=== PATIENT | male | born 1960 | race Caucasian/White ===

== ENCOUNTER 2017-01-08 06:52 | Observation (INO) | payer OTHER ==
[2017-01-06 10:59] LABS: HEMATOCRIT 46.4 % (40.0-51.0)
[2017-01-06 11:12] LABS: BUN (BLOOD UREA NITROGEN) 9 MG/DL (6-23); CALCIUM, SERUM 9.3 MG/DL (8.5-10.4); CHLORIDE, SERUM 107 MMOL/L (96-112); CO2 (CARBON DIOXIDE) 28 MMOL/L (24-34); CREATININE 0.88 MG/DL (0.70-1.30); GFR AFRICAN AMERICAN 112 ML/MIN (>=60); GFR NON AFRICAN AMERICAN 97 ML/MIN (>=60); GLUCOSE, SERUM 111 MG/DL (60-99); POTASSIUM, SERUM 4.5 MMOL/L (3.5-5.3); SODIUM, SERUM 142 MMOL/L (135-148)
--- NOTE | ~2017-01-08 | OP ---
Record Of Operation [facility] [address] [place]. [address] NAME: ANIA MORSE : 62 STATUS : DIS Yolanda PAT#: [id number] AGE: 56 ADM/REG DATE : 01/08/17 MR#: [id number] REPORT SERV DATE: 01/11/17 DICTATED BY: RAQUEL CHAVEZ II DATE: 01/11/17 REPORT STATUS : Draft TRANSCRIBED BY: MODL DATE: 01/11/17 DATE OF PROCEDURE: 01/08/2017 PREOPERATIVE DIAGNOSES: 1. Right upper extremity radiculopathy. 2. 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 3. Discogenic neck pain following trauma. POSTOPERATIVE DIAGNOSES: 1. Right upper extremity radiculopathy. 2. 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 3. Discogenic neck pain following trauma. PROCEDURE: 1. C5-6, C6-7 anterior interbody arthrodesis. 2. Application of prosthetic devices C5-6, C6-7. 3. Anterior instrumentation C5-6, C6-7. 4. Use of allograft substitute and bone marrow aspirate. 5. Use of the microscope. SURGEON: Raquel Chavez M.D. FLUIDS: 1800 mL LR. ESTIMATED BLOOD LOSS: 30 mL. DRAINS: One drain. COMPLICATIONS: None. ANTIBIOTIC: Preoperatively. DETAILS OF PROCEDURE: After informed consent was obtained, the patient was brought to the operating room at his request and general anesthesia achieved. He was placed in the supine position and the neck and iliac crest prepped and draped in a sterile fashion. 5 mL of bone marrow was aspirated from the iliac crest, followed by a right-sided longitudinal incision. The interval was explored and the deep cervical fascia incised. Subperiosteal exposure was completed from C5-7. The Press Operator Apprentice retractors were placed, followed by placement of the Windom pins. The microscope was now brought into place, and under microscopic visualization, the C6-7 disk was now removed. The endplates were prepared with the high- speed remberto, the Kerrison rongeurs, and the curettes. The posterolateral osteophytes were now removed including removal of the posterior longitudinal ligament. There was also a small fragment of disk, which was now removed, to further decompress the C7 nerve root on the right. We also performed a decompression of the left C6-7 foramen. The prosthetic device was now chosen and placed. This contained allograft substitute and bone marrow aspirate. Record Of Operation [facility] [place] [address] [place]. [address] NAME: ANIA MORSE : 62 STATUS : DIS Yolanda PAT#: [id number] AGE: 56 ADM/REG DATE : 01/08/17 MR#: [id number] REPORT SERV DATE: 01/11/17 DICTATED BY: RAQUEL CHAVEZ II DATE: 01/11/17 REPORT STATUS : Draft TRANSCRIBED BY: DMITRIY DATE: 01/11/17 Next, the C5-6 level was addressed in a similar manner with endplate preparation and removal of the posterior vertebral body osteophytes and the posterior ligament. The canal and foramen were now acceptably decompressed, followed by placement of the prosthetic device. Excellent fit was obtained. Next, the Windom pins were removed, followed by placement of the anterior fixation device. Please note, this was a separate plate and screw construct and two screws were then placed in the C5, C6, and C7. Multiplanar imaging confirmed acceptable placement of the implants. A deep drain was placed secondary to very mild cancellous bone bleeding. Standard closure was performed and dressings applied. The patient was extubated and transferred to PACU in stable condition. AIDA/DMITRIY Raquel Chavez II, M.D. / [id number] CC: Orion Feliciano II, JOHN D. Peter John Lund, M.D.
[~2017-01-08 06:52] MED LIST: FISH OIL1200 MG PO; GLUCCHONDR PO; TOPXL25 PO; VITC500 PO; ZYRTEC ALLGY10 MG PO
[2017-01-10] MEDS ORDERED: MSCONT15 PO (10:21)
[2017-01-10] MEDS ORDERED: V5 PO (10:22)
[2017-01-10] MEDS ORDERED: PERCOCET 10/3251 TAB PO (10:22)
[2017-01-10] MEDS ORDERED: ZOFRAN4 PO (10:22)
== END 2017-01-10 11:55 | disposition home or self-care (01) ==
LOC: SDC 06:52 → 3SO 16:24
PROVIDERS: Orthopaedic Surgery
PROC: 0RG2070 Fusion of 2 or more Cervical Vertebral Joints with Autologous Tissue Substitute, Anterior Approach, Anterior Column, Open Approach (ICD-10-PCS; 2017-01-08)
PROC: 0RG20K0 Fusion of 2 or more Cervical Vertebral Joints with Nonautologous Tissue Substitute, Anterior Approach, Anterior Column, Open Approach (ICD-10-PCS; 2017-01-08)
PROC: 0RB30ZZ Excision of Cervical Vertebral Disc, Open Approach (ICD-10-PCS; 2017-01-08)
PROC: 079T3ZX Drainage of Bone Marrow, Percutaneous Approach, Diagnostic (ICD-10-PCS; principal; 2017-01-08 09:15)
PROC: 0RG20A0 Fusion of 2 or more Cervical Vertebral Joints with Interbody Fusion Device, Anterior Approach, Anterior Column, Open Approach (ICD-10-PCS; 2017-01-08 09:15)
DX: M47.22 Other spondylosis with radiculopathy, cervical region (principal); M48.02 Spinal stenosis, cervical region; I25.10 Atherosclerotic heart disease of native coronary artery without angina pectoris; I10 Essential (primary) hypertension; I49.3 Ventricular premature depolarization; E78.5 Hyperlipidemia, unspecified; K50.90 Crohn's disease, unspecified, without complications; Z88.0 Allergy status to penicillin; Z88.5 Allergy status to narcotic agent; Z79.899 Other long term (current) drug therapy; Z98.890 Other specified postprocedural states
CPT/HCPCS: 80048; 82962; 85014; 85018; 87641; 88304; 88311; 93005; 96374; 96375; 96376; A9270-GY; C1713; G0378; J0690; J1170; J2250; J2270; J2405; J2550; J2710; J3010